=== PATIENT | male | born 1980 | race American Indian/Alaskan Native ===

== ENCOUNTER 2016-09-03 10:42 | Emergency (ER) | payer SELFPAY ==
[2016-09-03 10:46] VITALS: BP 124/84
--- NOTE | 2016-09-03 11:48 | Emergency Department Report ---
ED Headache HPI - General Chief Complaint: Headache Stated Complaint: MIGRAINES Time Seen by Provider: 09/03/16 11:48 - History of Present Illness Initial Comments: She is a 36-year-old male who presents to ED complaining of throbbing/18 pain on his forehead is 3 days. Patient's states his headache started 3 days ago. Patient describes his pain as throbbing, intermittent, nonradiating type located to the frontal region of his head. Patient states relief with Tylenol or Aleve for several hours and then return. She rates pain at is worst about a 5 out of 10. Patient rates his pain headache pain today 2 out of 10. Patient states he is not having a headache at the moment. She denies any fall or trauma. Patient denies fevers/chills/nausea/vomiting/abdominal pain/chest pains or shortness of breath/blurry vision/taken any medications or any allergies Allergies/Adverse Reactions: Allergies No Known Allergies Allergy (Unverified 09/03/16 10:44) Home Medications: Ambulatory Orders Butalb/Acetamin/Caff 50-325-40 [Fioricet] 1 tab PO Q6HR PRN #10 tab 09/03/16 Ibuprofen [Motrin 800 MG tab] 800 mg PO Q8HR PRN #40 tablet 09/03/16 ED Review of Systems ROS: Stated complaint: MIGRAINES Other details as noted in HPI ED Past Medical Hx - Past Medical History Previous Medical History?: No - Surgical History Past Surgical History?: No - Social History Smoking Status: Current Some Day Smoker Substance Use Type: None - Medications Home Medications: Home Medications Medication Instructions Recorded Confirmed Last Taken Type Butalb/Acetamin/Caff 50-325-40 1 tab PO Q6HR PRN #10 tab 09/03/16 Unknown Rx [Fioricet] Ibuprofen [Motrin 800 MG tab] 800 mg PO Q8HR PRN #40 tablet 09/03/16 Unknown Rx ED Physical Exam - General Limitations: No Limitations General appearance: alert, in no apparent distress - Head Head exam: Present: atraumatic, normocephalic - Eye Eye exam: Present: normal appearance Pupils: Present: normal accommodation - ENT ENT exam: Present: mucous membranes moist - Neck Neck exam: Present: normal inspection, full ROM. Absent: tenderness, meningismus, lymphadenopathy, thyromegaly - Respiratory Respiratory exam: Present: normal lung sounds bilaterally. Absent: respiratory distress, wheezes, rales, rhonchi, stridor - Cardiovascular Cardiovascular Exam: Present: regular rate, normal rhythm. Absent: systolic murmur, diastolic murmur, rubs, gallop - GI/Abdominal GI/Abdominal exam: Present: soft, normal bowel sounds. Absent: distended, tenderness, guarding, rebound, rigid - Rectal Rectal exam: Present: deferred - Extremities Exam Extremities exam: Present: normal inspection, full ROM. Absent: tenderness, normal capillary refill, pedal edema, joint swelling - Back Exam Back exam: Present: normal inspection, full ROM. Absent: tenderness, CVA tenderness (R), CVA tenderness (L), paraspinal tenderness, vertebral tenderness - Neurological Exam Neurological exam: Present: alert, oriented X3, CN II-XII intact, normal gait. Absent: motor sensory deficit - Expanded Neurological Exam Expanded Cranial nerves: EOM's Intact: Normal Cerebellar function: Finger to Nose: Normal Sensory exam: Upper Extremity Light Touch: Normal, Upper Extremity Temperature: Normal Motor strength exam: RUE: 5, LUE: 5, RLE: 5, LLE: 5 DTR: bicep (R): 2+, bicep (L): 2+, knee (R): 2+, knee (L): 2+ Best Eye Response ([place]): (4) open spontaneously Best Motor Response ([place]): (6) obeys commands Best Verbal Response ([place]): (5) oriented [place] Total: 15 - Psychiatric Psychiatric exam: Present: normal affect, normal mood - Skin Skin exam: Present: warm, dry, intact, normal color. Absent: rash ED Course Vital Signs 09/03/16 10:44 Temperature 98.5 F Pulse Rate 89 Respiratory 16 Rate Blood Pressure 124/84 O2 Sat by Pulse 100 Oximetry ED Medical Decision Making - Medical Decision Making 36-year-old male presents with migraine headache without complications. Patient states he's been having a headache at the moment. Vital signs are stable patient is in no acute distress. Discussed the patient follow up with primary care referrals. Discussed with patient to avoid migraine triggers such as caffeine, stress and not eating Discussed to continue taking pain meds as prescribed. Discuss his symptoms worsen or new symptoms arise to return to ED. Critical care attestation.: If time is entered above; I have spent that time in minutes in the direct care of this critically ill patient, excluding procedure time. ED Disposition Clinical Impression: Headache, common migraine Qualifiers: Status migrainosus presence: without status migrainosus Intractability: intractable Qualified Code(s): G43.019 - Migraine without aura, intractable, without status migrainosus Disposition: DISCHARGED TO HOME OR SELFCARE Is pt being admited?: No Does the pt Need Aspirin: No Condition: Stable Instructions: Migraine Headache (ED), Tension Headache (ED) Additional Instructions: Follow-up with primary care physician as discussed Take medications as prescribed. Symptom worsen or new symptoms or arise such as dizziness or blurry vision nausea vomiting return to ED Prescriptions: Butalb/Acetamin/Caff 50-325-40 [Fioricet] 1 tab PO Q6HR PRN #10 tab PRN Reason: Headache Ibuprofen [Motrin 800 MG tab] 800 mg PO Q8HR PRN #40 tablet PRN Reason: Pain [facility]errals: [facility] [Outside[facility] - 3-5 Days [facility] [Outside] - 3-5 Days [facility] [Outside] - 3-5 Days [facility] [Outside] - 3-5 Days Forms: Work/School Release Form(ED) Time of Disposition: 12:10
== END 2016-09-03 12:22 | disposition home or self-care (01) ==
LOC: ED 10:42
DX: G43.019 Migraine without aura, intractable, without status migrainosus (principal); F17.200 Nicotine dependence, unspecified, uncomplicated
CPT/HCPCS: 99282

== ENCOUNTER 2017-01-30 22:04 | Emergency (ER) | payer SELFPAY ==
[2017-01-30 22:17] VITALS: BP 136/87
== END 2017-01-31 01:40 | disposition left against medical advice (07) ==
LOC: ED 22:04
DX: R05 Cough (principal); F17.200 Nicotine dependence, unspecified, uncomplicated; Z53.21 Procedure and treatment not carried out due to patient leaving prior to being seen by health care provider

== ENCOUNTER 2017-01-31 09:47 | Emergency (ER) | payer SELFPAY ==
[2017-01-31 10:04] VITALS: BP 113/73
--- NOTE | 2017-01-31 13:18 | Emergency Department Report ---
- General Chief Complaint: Upper Respiratory Infection Stated Complaint: COUGHING /RUNNY NOSE Time Seen by Provider: 01/31/17 12:50 Source: patient Mode of arrival: Ambulatory Limitations: No Limitations - History of Present Illness Initial Comments: 36-year-old male past medical history smoker presents with complaint of approximately 5 days of productive cough fever chills body aches. Patient denies any chest pain or significant shortness of breath palpitations no reports of nausea or vomiting. Patient states multiple coworkers have been sick this week. States that he is having a persistent cough. Patient states he came to the ED last night below for assessment. MD Complaint: fever, cough Onset/Timin -: days(s) Severity: moderate Consistency: constant Improves With: nothing Worsens With: nothing Associated Symptoms: cough - Related Data Previous Rx's Medication Instructions Recorded Last Taken Type Butalb/Acetamin/Caff 50-325-40 1 tab PO Q6HR PRN #10 tab 09/03/16 Unknown Rx [Fioricet] Ibuprofen [Motrin 800 MG tab] 800 mg PO Q8HR PRN #40 tablet 09/03/16 Unknown Rx Azithromycin [Zithromax Z-BENJAMIN] 250 mg PO QDAY #6 tablet 01/31/17 Unknown Rx Brompheniramine/Pseudoephed/Dm 10 ml PO Q6H PRN #1 syrup 01/31/17 Unknown Rx [Bromfed Dm Cough Syrup] Naproxen [Naprosyn TAB] 500 mg PO BID PRN #25 tablet 01/31/17 Unknown Rx Allergies Allergy/AdvReac Type Severity Reaction Status Date / Time No Known Allergies Allergy Verified 01/31/17 10:00 ED Review of Systems ROS: Stated complaint: COUGHING /RUNNY NOSE Other details as noted in HPI Constitutional: denies: chills, fever Eyes: denies: eye pain, eye discharge, vision change ENT: denies: ear pain, throat pain Respiratory: denies: cough, shortness of breath, wheezing Cardiovascular: denies: chest pain, palpitations Endocrine: no symptoms reported Gastrointestinal: denies: abdominal pain, nausea, diarrhea Genitourinary: denies: urgency, dysuria Musculoskeletal: denies: back pain, joint swelling, arthralgia Skin: denies: rash, lesions Neurological: denies: headache, weakness, paresthesias Psychiatric: denies: anxiety, depression Hematological/Lymphatic: denies: easy bleeding, easy bruising ED Past Medical Hx - Past Medical History Previous Medical History?: No - Social History Smoking Status: Current Every Day Smoker Substance Use Type: Alcohol - Medications Home Medications: Home Medications Medication Instructions Recorded Confirmed Last Taken Type Butalb/Acetamin/Caff 50-325-40 1 tab PO Q6HR PRN #10 tab 09/03/16 Unknown Rx [Fioricet] Ibuprofen [Motrin 800 MG tab] 800 mg PO Q8HR PRN #40 tablet 09/03/16 Unknown Rx Azithromycin [Zithromax Z-BENJAMIN] 250 mg PO QDAY #6 tablet 01/31/17 Unknown Rx Brompheniramine/Pseudoephed/Dm 10 ml PO Q6H PRN #1 syrup 01/31/17 Unknown Rx [Bromfed Dm Cough Syrup] Naproxen [Naprosyn TAB] 500 mg PO BID PRN #25 tablet 01/31/17 Unknown Rx ED Physical Exam - General Limitations: No Limitations General appearance: alert, in no apparent distress - Head Head exam: Present: atraumatic, normocephalic - Eye Eye exam: Present: normal appearance, PERRL, EOMI - ENT ENT exam: Present: mucous membranes moist - Neck Neck exam: Present: normal inspection - Respiratory Respiratory exam: Present: normal lung sounds bilaterally. Absent: respiratory distress - Cardiovascular Cardiovascular Exam: Present: regular rate, normal rhythm. Absent: systolic murmur, diastolic murmur, rubs, gallop - GI/Abdominal GI/Abdominal exam: Present: soft, normal bowel sounds - Rectal Rectal exam: Present: deferred - Extremities Exam Extremities exam: Present: normal inspection - Back Exam Back exam: Present: normal inspection - Neurological Exam Neurological exam: Present: alert, oriented X3 - Psychiatric Psychiatric exam: Present: normal affect, normal mood - Skin Skin exam: Present: warm, dry, intact, normal color. Absent: rash ED Course Vital Signs 01/31/17 10:01 Temperature 98.1 F Pulse Rate 84 Respiratory 17 Rate Blood Pressure 113/73 O2 Sat by Pulse 98 Oximetry ED Medical Decision Making - Medical Decision Making A/P: Acute bronchitis 1-albuterol inhaler, naproxen, Bromfed, Z-Benajmin ( will cover as pt is smoker) 2-follow up with primary care doctor 3-advised patient to return to the ED if he experiences fevers chills nausea vomiting chest pain or worsening congestion despite use of these medicines Critical care attestation.: If time is entered above; I have spent that time in minutes in the direct care of this critically ill patient, excluding procedure time. ED Disposition Clinical Impression: Acute bronchitis Qualifiers: Bronchitis organism: unspecified organism Qualified Code(s): J20.9 - Acute bronchitis, unspecified Disposition: - TO HOME OR SELFCARE Is pt being admited?: No Does the pt Need Aspirin: No Condition: Stable Instructions: Acute Bronchitis (ED) Prescriptions: Azithromycin [Zithromax Z-BENJAMIN] 250 mg PO QDAY #6 tablet Brompheniramine/Pseudoephed/Dm [Bromfed Dm Cough Syrup] 10 ml PO Q6H PRN #1 syrup PRN Reason: Cough Naproxen [Naprosyn TAB] 500 mg PO BID PRN #25 tablet PRN Reason: Fever Referrals: [facility] [Outside] - 3-5 Days [facility] [Outside] - 3-5 Days Forms: Work/School Release Form(ED) Time of Disposition: 13:19
== END 2017-01-31 13:50 | disposition home or self-care (01) ==
LOC: ED 09:47
DX: J20.9 Acute bronchitis, unspecified (principal); F17.210 Nicotine dependence, cigarettes, uncomplicated
CPT/HCPCS: 99282

== ENCOUNTER 2022-02-10 21:34 | Inpatient (IN) | payer SELFPAY ==
[2022-02-10 22:20] LABS: Amphetamine Screen,Urine Negative; Benzodiazepines Screen,Urine Negative; Cannabinoid Screen,Urine Negative; Cocaine Screen,Urine Negative; Methadone Screen,Urine Negative; Opiate Screen,Urine Negative
[2022-02-11 01:59] LABS: Hematocrit 48.9 % (35.5-45.6); Hemoglobin 15.4 gm/dl (11.8-15.2); Mean Corpuscular HGB Conc 32 % (32-34); Mean Corpuscular Volume 87 fl (84-94); Platelet Count 230 K/mm3 (140-440); Red Blood Count 5.59 M/mm3 (3.65-5.03); Red Cell Distribution Width 13.2 % (13.2-15.2)
[2022-02-11 02:00] LABS: Alanine Aminotransferase 21 units/L (7-56); Albumin 4.6 g/dL (3.9-5); BUN/Creatinine Ratio 11; Blood Urea Nitrogen 16 mg/dL (9-20); Calcium 9.6 mg/dL (8.4-10.2); Hemolysis Index 11
[2022-02-11] MEDS ORDERED: ACETADOTE IV ONE ×4 (03:30→18:00)
[2022-02-11] MEDS ORDERED: DEXTROSE 5% IV ONE ×4 (03:30→18:00)
[2022-02-11] MEDS ORDERED: WATER IV ONE ×4 (03:30→18:00)
--- NOTE | 2022-02-11 04:13 | Emergency Department Report ---
History of Present Illness - General Chief Complaint: Overdose Stated Complaint: OVERDOSE ON TYLENOL Time Seen by Provider: 02/11/22 01:51 Source: patient Mode of arrival: Ambulatory Limitations: No Limitations - History of Present Illness Initial Comments: Patient is a 41-year-old male brought in by EMS for evaluation of intentional overdose. Patient reportedly took 29 acetaminophen tablets at approximately 1:59 PM this afternoon. States he is simply "tired and has been going through a lot ". - Related Data Previous Rx's Medication Instructions Recorded Last Taken Type Butalb/Acetamin/Caff 50-325-40 1 tab PO Q6HR PRN #10 tab 09/03/16 Unknown Rx [Fioricet] Ibuprofen [Motrin 800 MG tab] 800 mg PO Q8HR PRN #40 tablet 09/03/16 Unknown Rx Albuterol Mdi (or & Nicu Only) 1 puff IH Q4H PRN #1 inha 01/31/17 Unknown Rx [ProAir HFA Inhaler] Azithromycin [Zithromax Z-BENJAMIN] 250 mg PO QDAY #6 tablet 01/31/17 Unknown Rx Brompheniramine/Pseudoephed/Dm 10 ml PO Q6H PRN #1 syrup 01/31/17 Unknown Rx [Bromfed Dm Cough Syrup] Naproxen [Naprosyn TAB] 500 mg PO BID PRN #25 tablet 01/31/17 Unknown Rx Allergies Allergy/AdvReac Type Severity Reaction Status Date / Time No Known Allergies Allergy Verified 02/10/22 21:44 ED Review of Systems ROS: Stated complaint: OVERDOSE ON TYLENOL Other details as noted in HPI Constitutional: denies: chills, fever Respiratory: denies: cough, shortness of breath, wheezing Cardiovascular: denies: chest pain, palpitations Gastrointestinal: denies: abdominal pain, nausea, diarrhea Genitourinary: denies: urgency, dysuria Musculoskeletal: denies: back pain, joint swelling, arthralgia Skin: denies: rash, lesions Neurological: denies: headache, weakness, paresthesias Psychiatric: depression. denies: anxiety ED Past Medical Hx - Past Medical History Previous Medical History?: No - Surgical History Past Surgical History?: Yes Additional Surgical History: lung - Social History Smoking Status: Never Smoker Substance Use Type: None - Medications Home Medications: Home Medications Medication Instructions Recorded Confirmed Last Taken Type Butalb/Acetamin/Caff 50-325-40 1 tab PO Q6HR PRN #10 tab 09/03/16 Unknown Rx [Fioricet] Ibuprofen [Motrin 800 MG tab] 800 mg PO Q8HR PRN #40 tablet 09/03/16 Unknown Rx Albuterol Mdi (or & Nicu Only) 1 puff IH Q4H PRN #1 inha 01/31/17 Unknown Rx [ProAir HFA Inhaler] Azithromycin [Zithromax Z-BENJAMIN] 250 mg PO QDAY #6 tablet 01/31/17 Unknown Rx Brompheniramine/Pseudoephed/Dm 10 ml PO Q6H PRN #1 syrup 01/31/17 Unknown Rx [Bromfed Dm Cough Syrup] Naproxen [Naprosyn TAB] 500 mg PO BID PRN #25 tablet 01/31/17 Unknown Rx ED Physical Exam - General Limitations: No Limitations General appearance: alert, in no apparent distress - Head Head exam: Present: atraumatic, normocephalic - Neck Neck exam: Present: normal inspection - Respiratory Respiratory exam: Present: normal lung sounds bilaterally. Absent: respiratory distress - Cardiovascular Cardiovascular Exam: Present: normal rhythm, tachycardia, normal heart sounds - GI/Abdominal GI/Abdominal exam: Present: soft. Absent: distended, tenderness - Rectal Rectal exam: Present: deferred - Neurological Exam Neurological exam: Present: alert, oriented X3 - Psychiatric Psychiatric exam: Present: normal affect, normal mood - Skin Skin exam: Present: warm, dry, intact, normal color ED Course Vital Signs 02/10/22 02/11/22 02/11/22 21:42 01:52 01:56 Temperature 99.0 F Pulse Rate 118 H 95 H Respiratory 18 12 Rate Blood Pressure Blood Pressure 113/76 117/81 [Left] O2 Sat by Pulse 98 94 98 Oximetry 02/11/22 02/11/22 02:00 02:30 Temperature Pulse Rate 95 H 95 H Respiratory 15 16 Rate Blood Pressure 117/81 100/64 Blood Pressure [Left] O2 Sat by Pulse 80 L 94 Oximetry ED Medical Decision Making - Lab Data Result diagrams: 02/11/22 01:22 02/11/22 01:22 - Medical Decision Making CBC and CMP grossly unremarkable. Serum acetaminophen level 136. 1013 filed. Poison control contacted and recommended initiation of NAC therapy. Will admit to hospitalist. Critical Care Time: Yes Critical care time in (mins) excluding proc time.: 40 Critical care attestation.: If time is entered above; I have spent that time in minutes in the direct care of this critically ill patient, excluding procedure time. ED Disposition Clinical Impression: Intentional acetaminophen overdose Disposition: ADMITTED INPATIENT Is pt being admited?: Yes Condition: Stable
[2022-02-11] MEDS ORDERED: MAGNESIUM HYDROXIDE (MOM) ORAL LIQD UDC PO PRN (04:46)
[2022-02-11] MEDS ORDERED: MORPHINE 4 MG/1 ML INJ IV PRN (04:46)
[2022-02-11] MEDS ORDERED: ONDANSETRON 4 MG/2 ML INJ IV PRN (04:46)
[2022-02-11] MEDS ORDERED: MORPHINE 2 MG/1 ML INJ IV PRN (04:46)
[2022-02-11] MEDS ORDERED: IBUPROFEN 600 MG TAB PO PRN (04:46)
--- NOTE | 2022-02-11 05:03 | History and Physical Report ---
History of Present Illness Date of examination: 02/11/22 Date of admission: 02/11/2022 Chief complaint: Acetaminophen overdose History of present illness: 41-year-old seen in the emergency room today for evaluation of intentional overdose of acetaminophen. Patient was said to have taken about 29 acetaminophen tablets 650 mg each. He had the ingestion at about 2 PM yesterday. Patient states he was just tired of life states he has been going through a whole lot lately. He denies any chest pain or shortness of breath, no nausea vomiting, no abdominal pain. Denies any headache or dizziness paresis. Work-up in the emergency room today, acetaminophen level was 131.6. Patient's condition was reported to poison control. Recommendation is to start patient on Mucomyst. Past History Past Medical History: No medical history Past Surgical History: Other (Neurosurgery) Social history: smoking (Smokes tobacco occasionally), alcohol abuse (Drinks alcohol occasionally) Family history: no significant family history Medications and Allergies Allergies Allergy/AdvReac Type Severity Reaction Status Date / Time No Known Allergies Allergy Verified 02/10/22 21:44 Home Medications Medication Instructions Recorded Confirmed Last Taken Type Butalb/Acetamin/Caff 50-325-40 1 tab PO Q6HR PRN #10 tab 09/03/16 Unknown Rx [Fioricet] Ibuprofen [Motrin 800 MG tab] 800 mg PO Q8HR PRN #40 tablet 09/03/16 Unknown Rx Albuterol Mdi (or & Nicu Only) 1 puff IH Q4H PRN #1 inha 01/31/17 Unknown Rx [ProAir HFA Inhaler] Azithromycin [Zithromax Z-BENJAMIN] 250 mg PO QDAY #6 tablet 01/31/17 Unknown Rx Brompheniramine/Pseudoephed/Dm 10 ml PO Q6H PRN #1 syrup 01/31/17 Unknown Rx [Bromfed Dm Cough Syrup] Naproxen [Naprosyn TAB] 500 mg PO BID PRN #25 tablet 01/31/17 Unknown Rx Active Meds: Active Medications Acetylcysteine 3,200 mg/ (Dextrose) 516 mls @ 125 mls/hr IV ONCE ONE Stop: 02/11/22 08:37 Acetylcysteine 6,400 mg/ (Dextrose) 1,032 mls @ 62.5 mls/hr IV ONCE ONE Stop: 02/12/22 01:00 Review of Systems Constitutional: no fever, no chills Ears, nose, mouth and throat: no nasal congestion, no sore throat Cardiovascular: no chest pain, no palpitations Respiratory: no cough, no shortness of breath Gastrointestinal: no abdominal pain, no nausea, no vomiting, no diarrhea Genitourinary Male: no dysuria, no hematuria, no flank pain Musculoskeletal: no neck pain, no low back pain Integumentary: no rash, no pruritis Neurological: no headaches, no confusion Psychiatric: depression, no anxiety, no paranoia Endocrine: no polyphagia, no polydipsia, no polyuria, no nocturia Exam - Constitutional Vitals: Temp Pulse Resp BP Pulse Ox 99.0 F 95 H 16 100/64 94 02/10/22 21:42 02/11/22 02:30 02/11/22 02:30 02/11/22 02:30 02/11/22 02:30 General appearance: Present: no acute distress, well-nourished - EENT Eyes: Present: PERRL, EOM intact. Absent: scleral icterus ENT: hearing intact, clear oral mucosa, dentition normal - Neck Neck: Present: supple, normal ROM - Respiratory Respiratory effort: normal Respiratory: bilateral: CTA - Cardiovascular Rhythm: regular Heart Sounds: Present: S1 & S2. Absent: gallop, systolic murmur, diastolic murmur, rub, click - Extremities Extremities: no ischemia, pulses intact, pulses symmetrical, No edema, normal temperature, normal color, Full ROM Peripheral Pulses: within normal limits - Abdominal General gastrointestinal: Present: soft, non-tender, non-distended, normal bowel sounds. Absent: mass - Integumentary Integumentary: Present: clear, warm, dry, normal turgor. Absent: rash - Musculoskeletal Musculoskeletal: strength equal bilaterally - Psychiatric Psychiatric: appropriate mood/affect, intact judgment & insight, memory intact, cooperative - Neurologic Neurologic: CNII-XII intact, no focal deficits, moves all extremities Results - Labs CBC & Chem 7: 02/11/22 01:22 02/11/22 01:22 Labs: Abnormal lab results 02/11/22 02/11/22 02/11/22 Range/Units :31 08: 01: RBC 5.59 H (3.65-5.03) M/mm3 Hgb 15.4 H (11.8-15.2) gm/dl Hct 48.9 H (35.5-45.6) % Carbon Dioxide 18 L (22-30) mmol/L Creatinine 1.4 H (0.8-1.3) mg/dL Glucose 119 H (75-100) mg/dL Salicylates (2.8-20.0) mg/dL Acetaminophen 131.6 H (10.0-30.0) ug/mL 02/11/22 Range/Units 01:22 RBC (3.65-5.03) M/mm3 Hgb (11.8-15.2) gm/dl Hct (35.5-45.6) % Carbon Dioxide (22-30) mmol/L Creatinine (0.8-1.3) mg/dL Glucose (75-100) mg/dL Salicylates < 0.3 L (2.8-20.0) mg/dL Acetaminophen (10.0-30.0) ug/mL Assessment and Plan Assessment: 1. Acetaminophen overdoseintentional Plan: Patient admitted and placed on Mucomyst. We will monitor acetaminophen level. Patient will require mental health evaluation prior to discharge DVT prophylaxis: Subcutaneous heparin CODE STATUS full code
--- NOTE | 2022-02-11 13:07 | Consultation ---
History of Present Illness - Reason for Consult Consult date: 02/11/22 Reason for consult: Intentional OD - Chief Complaint Chief complaint: Acetaminophen overdose - History of Present Psychiatric Illness HPI: Patient is a 41-year-old male brought in by EMS for evaluation of intentional overdose. Patient reportedly took 29 acetaminophen tablets at approximately 1:59 PM this afternoon. States he is simply "tired and has been going through a lot." The patient was seen today. He says he got very upset. The patient says he got into some trouble on the street and went to detention. He says he got very depressed because he was doing good and allowed himself to catch a drug charge again. The patient say she took 29 tylenol pills. He says "but now that I had time to think, I realize I shouldn't have done that." The patient says "I realize my life is very important to me." He denies any past history of psych disorders or being on any psych meds. The patient denies hallucinations of any kind. The patient becomes upset and says he doesn't need to be inpatient anywhere and that he has to go home to his family. I discuss with the patient how impulsive his actions were in taking the pills. I also tell him he has to be monitored to make sure his liver is okay. The patient becomes upset and says "nothing is wrong with me. I want this I.V out." He then says "If I leave what's going to happen?" I tell the patient that he is now here involuntary and can't leave the hospital. PAST PSYCHIATRIC HISTORY: Diagnoses: Denies Suicide attempts or Self-harm behavior: Denies Prior psychiatric hospitalizations: Denies Substance Abuse history: Denies Previous psychiatric medications tried: Denies Outpatient treatment: Denies PAST MEDICAL HISTORY: None reported Family Psychiatric History: None reported or documented SOCIAL HISTORY Marital Status: Living Arrangements: with family Employment Status: Employed Access to guns/weapons: Denies Education: History of Abuse:Denies Legal History: Denies REVIEW OF SYSTEMS Constitutional: Negative for weight loss ENT: Negative for stridor Respiratory: Negative for cough or hemoptysis All other systems reviewed and are negative MENTAL STATUS EXAMINATION General Appearance and Behavior: Age appropriate, wearing appropriate clothes, cooperative, irritable, good eye contact Cooperation: cooperative Psychomotor Behavior: Psychomotor normal Mood: Depressed Affect and affective range: congruent with stated affect Thought Process: Goal directed Thought Content: SI, hallucinations Speech: Normal volume, Regular rate and rhythm Suicidal Ideation: intentional OD, now denies SI Homicidal Ideation: Denies Hallucination: Denies Delusions: Denies Impulse Control: Limited Insight and Judgment: Limited Memory: Intact Attention:attentive Orientation: Alert and oriented Diagnoses: Intentional Overdose Treatment Plan 1013 Melatonin 10mg po qhs Will hold antidepressants for now Medical: per primary Sitter: Defer to primary Disposition: Recommend acute psychiatric inpatient treatment Will follow. Thanks. Case staffed with Dr. Bunn Medications and Allergies Allergies Allergy/AdvReac Type Severity Reaction Status Date / Time No Known Allergies Allergy Verified 02/10/22 21:44 Home Medications Medication Instructions Recorded Confirmed Last Taken Type Butalb/Acetamin/Caff 50-325-40 1 tab PO Q6HR PRN #10 tab 09/03/16 Unknown Rx [Fioricet] Ibuprofen [Motrin 800 MG tab] 800 mg PO Q8HR PRN #40 tablet 09/03/16 Unknown Rx Albuterol Mdi (or & Nicu Only) 1 puff IH Q4H PRN #1 inha 01/31/17 Unknown Rx [ProAir HFA Inhaler] Azithromycin [Zithromax Z-BENJAMIN] 250 mg PO QDAY #6 tablet 01/31/17 Unknown Rx Brompheniramine/Pseudoephed/Dm 10 ml PO Q6H PRN #1 syrup 01/31/17 Unknown Rx [Bromfed Dm Cough Syrup] Naproxen [Naprosyn TAB] 500 mg PO BID PRN #25 tablet 01/31/17 Unknown Rx Active Meds: Active Medications Acetylcysteine 6,400 mg/ (Dextrose) 1,032 mls @ 62.5 mls/hr IV ONCE ONE Stop: 02/12/22 01:00 Last Admin: 02/11/22 13:00 Dose: Not Given Ibuprofen (Ibuprofen 600 Mg Tab) 600 mg PO Q6H PRN PRN Reason: Pain, Mild (1-3) Magnesium Hydroxide (Magnesium Hydroxide (Mom) Oral Liqd Udc) 30 ml PO Q4H PRN PRN Reason: Constipation Morphine Sulfate (Morphine 2 Mg/1 Ml Inj) 2 mg IV Q4H PRN PRN Reason: Pain, Moderate (4-6) Morphine Sulfate (Morphine 4 Mg/1 Ml Inj) 4 mg IV Q4H PRN PRN Reason: Pain , Severe (7-10) Ondansetron HCl (Ondansetron 4 Mg/2 Ml Inj) 4 mg IV Q8H PRN PRN Reason: Nausea And Vomiting Sodium Chloride (Sodium Chloride 0.9% 10 Ml Flush Syringe) 10 ml IV BID ANGELI Last Admin: 02/11/22 13:01 Dose: 10 ml Sodium Chloride (Sodium Chloride 0.9% 10 Ml Flush Syringe) 10 ml IV PRN PRN PRN Reason: LINE FLUSH Mental Status Exam - Vital signs Last Vital Signs Temp 97.2 F L 02/11/22 08:36 Pulse 88 02/11/22 08:36 Resp 15 02/11/22 08:36 BP 122/79 02/11/22 08:36 Pulse Ox 100 02/11/22 08:36 Results Result Diagrams: 02/11/22 01:22 02/11/22 01:22 Abnormal lab results 02/11/22 02/11/22 02/11/22 Range/Units 01:22 01:22 01:22 RBC 5.59 H (3.65-5.03) M/mm3 Hgb 15.4 H (11.8-15.2) gm/dl Hct 48.9 H (35.5-45.6) % Carbon Dioxide 18 L (22-30) mmol/L Creatinine 1.4 H (0.8-1.3) mg/dL Glucose 119 H (75-100) mg/dL Salicylates (2.8-20.0) mg/dL Acetaminophen 131.6 H (10.0-30.0) ug/mL 02/11/22 Range/Units 01:22 RBC (3.65-5.03) M/mm3 Hgb (11.8-15.2) gm/dl Hct (35.5-45.6) % Carbon Dioxide (22-30) mmol/L Creatinine (0.8-1.3) mg/dL Glucose (75-100) mg/dL Salicylates < 0.3 L (2.8-20.0) mg/dL Acetaminophen (10.0-30.0) ug/mL All other labs normal.
--- NOTE | 2022-02-11 18:48 | Event Note ---
Date: 02/11/22 41-year-old seen in the emergency room today for evaluation of intentional overdose of acetaminophen. Patient admitted and placed on Mucomyst. We will cont to monitor acetaminophen level. placed consult for mental health evaluation prior to discharge -- cont current Mx and plan
[2022-02-11] MEDS ORDERED: MELATONIN 5 MG TAB PO SCH (22:00)
[2022-02-12 06:53] LABS: Basophils % (Auto) 0.7 % (0.0-1.8); Eosinophils % (Auto) 0.4 % (0.0-4.3); Hematocrit 39.9 % (35.5-45.6); Hemoglobin 13.2 gm/dl (11.8-15.2); Lymphocytes # (Auto) 1.1 K/mm3 (1.2-5.4); Lymphocytes % (Auto) 29.6 % (13.4-35.0); Mean Corpuscular HGB Conc 33 % (32-34); Mean Corpuscular Volume 86 fl (84-94); Monocytes # (Auto) 0.4 K/mm3 (0.0-0.8); Monocytes % (Auto) 10.4 % (0.0-7.3); Platelet Count 178 K/mm3 (140-440); Red Blood Count 4.65 M/mm3 (3.65-5.03); Red Cell Distribution Width 13.1 % (13.2-15.2)
[2022-02-12 07:04] LABS: BUN/Creatinine Ratio 13; Blood Urea Nitrogen 12 mg/dL (9-20); Calcium 8.7 mg/dL (8.4-10.2); Hemolysis Index 10
[2022-02-12 10:34] LABS: Alanine Aminotransferase 14 units/L (7-56); Albumin 4.1 g/dL (3.9-5)
[2022-02-12 11:03] LABS: Bilirubin,Direct < 0.2 mg/dL (0-0.2)
--- NOTE | 2022-02-12 11:44 | Progress Note ---
Subjective - Reason for Consult Consult date: 02/12/22 Reason for consult: SI - Chief Complaint Chief complaint: The patient was seen today. He is more pleasant today. He is also apologetic about his tone yesterday, and says he wants to apologize to everybody in the ER. The patient says "I'm doing great. I've had so much time to think." The patient says "life is so shane. I apologized to my mom and my , and everybody. Ma'am, I will never do nothing stupid like that again." The patient says his mom called "the [facility] and they are going to help me get a job and get things situated." He says "I am not suicidal and would never do nothing like that again." He denies homicidal thoughts. He denies hallucinations of any kind. The patient says "I'm ready to get back to the real world with my family." The patient says "I can't go back to residential. All of this has gave me a wake up call. I just want to live and feel sunshine. I love life and my freedom." The patient gives me permission to speak to his mother. I call her from the patient's bedside. She says she is trying to get something saying he's in the hospital to give to his traffic control officer. She confirms that the patient will be going to live in the [facility] to help him get a job and get on his feet. She says the patient has never done anything like this and she doesn't believe he will ever do it again. REVIEW OF SYSTEMS Constitutional: Negative for weight loss ENT: Negative for stridor Respiratory: Negative for cough or hemoptysis All other systems reviewed and are negative MENTAL STATUS EXAMINATION General Appearance and Behavior: Age appropriate, wearing appropriate clothes, cooperative, calm and cooperative, good eye contact Cooperation: cooperative Psychomotor Behavior: Psychomotor normal Mood: better Affect and affective range: congruent with stated affect Thought Process: Goal directed Thought Content: Optimism Speech: Normal volume, Regular rate and rhythm Suicidal Ideation: Denies Homicidal Ideation: Denies Hallucination: Denies Delusions: Denies Impulse Control: Limited Insight and Judgment: Limited Memory: Intact Attention:attentive Orientation: Alert and oriented Diagnoses: Intentional Overdose Treatment Plan d/c 1013 Lexapro 5mg po daily Melatonin 10mg po qhs Medical: per primary Sitter: Defer to primary Disposition: Do not recommend acute psychiatric inpatient treatment. The patient understands that if SI/HI or any fear of endangerment arise he is to seek immediate assistance. The knot borer to further discuss safety plan and give all outpatient resources The patient is to establish and follow up with outpatient psych in 7 to 14 days upon discharge Will sign off. Thanks. Case staffed with Dr. Bunn Mental Status Exam - Vital signs Last Vital Signs Temp 99.0 F 02/11/22 19:15 Pulse 62 02/12/22 00:22 Resp 16 02/11/22 19:15 BP 131/96 02/11/22 19:15 Pulse Ox 99 02/11/22 20:22
--- NOTE | 2022-02-12 12:52 | Discharge Summary ---
Providers - Providers Date of Admission: 02/11/22 04:48 Date of discharge: 02/12/22 Attending physician: CHRISTOPHER TO 02/11/22 07:09 Consult to Mental Health [CONS] Routine Reason For Exam: Suicidal ideation, acetaminophen overdose Primary care physician: [facility] [facility] Hospitalization Condition: Stable Disposition: 01 HOME / SELF CARE / HOMELESS Final Discharge Diagnosis (Prints w/discharge instructions): -- Intentional Acetaminophen overdose. -- depression Time spent for discharge: 34 minutes Exam - Constitutional Vitals: Temp Pulse Resp BP Pulse Ox 99.0 F 62 16 131/96 99 02/11/22 19:15 02/12/22 00:22 02/11/22 19:15 02/11/22 19:15 02/11/22 20:22 Plan Activity: advance as tolerated Weight Bearing Status: Weight Bear as Tolerated Diet: low fat Follow up with: PRIMARY CAREMD [Primary Care Provider] - 7 Days RITO FONSECA MD [Staff Physician] - 7 Days Prescriptions: Melatonin [Melatonin 10MG ER] 10 mg PO QHS #30 Escitalopram Oxalate [Lexapro] 5 mg PO QDAY #30
[2022-02-12 15:24] VITALS: BP 135/97
--- NOTE | 2022-02-12 17:42 | Electrocardiograph Report ---
[facility] Test Date: 2022-02-10 Test Time: 22:12:37 Pat Name: LORI BETANCOURT Department: Room: A480 Gender: M [employer]: CONTRERAS : 1980 Requested By: HEATHER VACA Order Number: [id number] Reading MD: Yobani Tompkins Measurements Intervals [place] Rate: 102 P: 80 [place]: 142 QRS: 71 QRSD: 79 T: 64 QT: 349 QTc: 455 Interpretive Statements Sinus tachycardia No previous ECG available for comparison Electronically Signed On 02-12-2022 17:42:13 EDT by Yobani Tompkins
== END 2022-02-12 16:50 | disposition home or self-care (01) | DRG 918 ==
LOC: ED 21:34 → 4A 02-11 04:48
PROVIDERS: ADMIT Internal Medicine Geriatric Medicine; ATTEND Internal Medicine
DX: T39.1X2A Poisoning by 4-Aminophenol derivatives, intentional self-harm, initial encounter (principal); Y92.89 Other specified places as the place of occurrence of the external cause; F32.9 Major depressive disorder, single episode, unspecified
CPT/HCPCS: 36415; 80048; 80053; 80076; 80307; 80320; 85025; 85027; 93005; 99406; G0378; J3490; J7060; G0480; J0132; J7070